=== PATIENT | male | born 1995 | race Caucasian/White ===

== ENCOUNTER 2018-10-07 16:16 | Emergency (ER) | payer BC ==
[2018-10-07 16:26] VITALS: BP 141/78; PULSE 79; RESP 18; TEMP 98.7
--- NOTE | 2018-10-07 17:30 | ED ---
ENT HPI - General Chief complaint: ENT Stated complaint: sore throat Time Seen by Provider: 10/07/18 16:27 Source: patient Mode of arrival: ambulatory Limitations: no limitations - History of Present Illness Initial comments: 23-year-old male presented for sore throat. Patient states he recently had cough congestion. He states that for the past 2 days he has had sore throat. His girlfriend also has a sore throat. Patient states that it feels more than a regular sore throat. Patient states he has taken lots of water with this pills. Denies taking pills at night. Patient is confident there is; there. Denies any eating any fish bones he states that it feels like he may have strep throat. Patient denies fevers. Denies cough. Denies abdominal pain. Remaining review of system negative - Related Data Allergies Allergy/AdvReac Type Severity Reaction Status Date / Time No Known Allergies Allergy Verified 10/07/18 16:26 Review of Systems ROS Statement: Those systems with pertinent positive or pertinent negative responses have been documented in the HPI. ROS Other: All systems not noted in ROS Statement are negative. Past Medical History Past Medical History: No Reported History History of Any Multi-Drug Resistant Organisms: None Reported Past Surgical History: No Surgical Hx Reported Past Psychological History: No Psychological Hx Reported Smoking Status: Never smoker Past Alcohol Use History: Occasional Past Drug Use History: None Reported General Exam - General Exam Comments Initial Comments: General: The patient is awake and alert, in no distress, and does not appear acutely ill. Eye: +3 mm pupils are equal, round and reactive to light, extra-ocular movements are intact. No nystagmus. There is normal conjunctiva bilaterally. No signs of icterus. No photophobia Ears, nose, mouth and throat: There are moist mucous membranes and no oral lesions. Oropharynx was erythematous there is no tonsillar enlargement exudates or lesions. Uvula midline. Tympanic membranes are not erythematous or is no effusions bulging or retraction. No tenderness to palpation of the mastoid. No anterior cervical lymphadenopathy. No tripoding, no drooling. Neck: The neck is supple, there is no tenderness or JVD. No nuchal rigidity Cardiovascular: There is a regular rate and rhythm. No murmur, rub or gallop is appreciated. Respiratory: Lungs are clear to auscultation, respirations are non-labored, breath sounds are equal. No wheezes, stridor, rales, or rhonchi. No retractions or abdominal breathing. Gastrointestinal: Soft, non-distended, non-tender abdomen without masses or organomegaly noted. There is no rebound or guarding present. Bowel sounds are unremarkable. Musculoskeletal: Normal ROM, no tenderness. Strength 5/5. Sensation intact. Radial pulses equal bilaterally 2+. Neurological: A&O x 3. CN II-XII intact, There are no obvious motor or sensory deficits. Coordination appears grossly intact. Speech appears normal, no muff ling. Skin: Skin is warm and dry and no rashes or lesions are noted. No extremity edema Psychiatric: Cooperative Limitations: no limitations Course Vital Signs 10/07/18 16:24 Temperature 98.7 F Pulse Rate 79 Respiratory 18 Rate Blood Pressure 141/78 O2 Sat by Pulse 99 Oximetry Medical Decision Making - Medical Decision Making Appearing 23-year-old male for sore throat. Sick contacts at home cough and has read painful throat as well. Patient is afebrile. No tonsillar exudates. Erythematous throat with uvula midline. Patient states his calf and he did not have a pill stuck in his throat. At this time feel patient is viral pharyngitis given strep testing negative. I recommend patient follow-up with primary care provider and discuss symptomatically treatment. Patient is provided a single dose of Decadron in the emergency department. Return parameters were discussed the patient is discharged appearing well - Lab Data Lab Results 10/07/18 Range/Units 17:05 Group A Strep Rapid Negative (Negative) Disposition Clinical Impression: Pharyngitis Disposition: HOME SELF-CARE Condition: Good Instructions (If sedation given, give patient instructions): Mononucleosis (ED), Pharyngitis (ED) Additional Instructions: Please use medication as discussed. Please follow-up with family doctor in the next 2 days. Please return to emergency room if the symptoms increase or worsen or for any other concerns, abdominal pain. Is patient prescribed a controlled substance at d/c from ED?: No Referrals: None,St[facility] Time of Disposition: 17:40
[2018-10-07] MEDS ORDERED: DEXAMETHASONE 4 MG TAB PO STA (17:40)
== END 2018-10-07 17:48 | disposition home or self-care (01) ==
LOC: EC 16:16
DX: J02.9 Acute pharyngitis, unspecified (principal)
CPT/HCPCS: 87081; 87430; 99283; J8540

== ENCOUNTER → 2020-09-08 | Outpatient (CLI) | payer BC | END | disposition home or self-care (01) | DX: R10.9 Unspecified abdominal pain (principal) ==

== ENCOUNTER 2020-10-20 10:48 | Emergency (ER) | payer BC ==
[2020-10-20 11:06] VITALS: TEMP 97.9
[2020-10-20] MEDS ORDERED: SODIUM CHLORIDE 0.9% 1,000 ML IV STA (11:50)
[2020-10-20] MEDS ORDERED: KETOROLAC 15 MG/ML 1 ML VIAL IVP STA (11:50)
--- NOTE | 2020-10-20 11:55 | ED ---
General Adult HPI - General Chief complaint: Abdominal Pain Stated complaint: right side pain Source: patient, RN notes reviewed, old records reviewed Mode of arrival: ambulatory Limitations: no limitations - History of Present Illness Initial comments: 25-year-old well-appearing white male, presents to the emergency room with complaints of 3 months of right sided abdominal pain. Patient states he seen his primary care, Dr. Sandhu, and had CAT scan done was unremarkable. He continues to have the right-sided pain seen his doctor on Friday and she stated there was white blood cells in his urine and put him on antibiotics. Patient denies any dysuria but states every time he tries to eat he has this right-sided abdominal pain and feels like there is a pressure in his back. He is scheduled for an ultrasound at the end of November but states that the pain was worsening today so he came to the emergency room. He does state that he had blood work done on Friday with his primary care doctor but does not know the results. He denies any fevers, or vomiting but does state that he had a decrease in appetite related to the pain. -: month(s) (3) Location: back, pelvis, right Radiation: non-radiation Severity scale (1-10): 7 Quality: other (Pressure and bloating) Consistency: constant Improves with: none Worsens with: eating Treatments Prior to Arrival: other (Antibiotics) - Related Data Home Medications Medication Instructions Recorded Confirmed Ciprofloxacin HCl 500 mg PO BID 10/20/20 10/20/20 Allergies Allergy/AdvReac Type Severity Reaction Status Date / Time No Known Allergies Allergy Verified 10/20/20 12:16 Review of Systems ROS Statement: Those systems with pertinent positive or pertinent negative responses have been documented in the HPI. ROS Other: All systems not noted in ROS Statement are negative. Past Medical History Past Medical History: No Reported History History of Any Multi-Drug Resistant Organisms: None Reported Past Surgical History: No Surgical Hx Reported Past Psychological History: No Psychological Hx Reported Smoking Status: Never smoker Past Alcohol Use History: Occasional Past Drug Use History: None Reported General Exam Limitations: no limitations General appearance: alert, in no apparent distress Head exam: Present: atraumatic, normocephalic, normal inspection Eye exam: Present: normal appearance, PERRL, EOMI. Absent: scleral icterus, conjunctival injection, periorbital swelling ENT exam: Present: normal exam, normal oropharynx, mucous membranes moist Neck exam: Present: full ROM. Absent: meningismus Respiratory exam: Present: normal lung sounds bilaterally. Absent: respiratory distress, wheezes, rales, rhonchi, stridor, decreased breath sounds, prolonged expiratory Cardiovascular Exam: Present: normal rhythm, bradycardia, normal heart sounds. Absent: systolic murmur, diastolic murmur, rubs, gallop, clicks GI/Abdominal exam: Present: soft, tenderness (Suprapubic), normal bowel sounds. Absent: distended, guarding, rebound, rigid Back exam: Present: normal inspection, full ROM. Absent: tenderness, CVA tenderness (R), CVA tenderness (L), muscle spasm, paraspinal tenderness, sarah tebral tenderness Neurological exam: Present: alert, oriented X3, CN II-XII intact Psychiatric exam: Present: normal affect, normal mood Skin exam: Present: warm, dry, intact, normal color. Absent: rash Course Vital Signs 10/20/20 10/20/20 11:02 12:58 Temperature 97.9 F Pulse Rate 58 L 80 Respiratory 18 20 Rate Blood Pressure 147/91 132/64 O2 Sat by Pulse 98 99 Oximetry Medical Decision Making - Medical Decision Making UA shows small leukocyte esterase, negative for nitrites, there are 14 wbc's and patient was placed on antibiotics by his primary care doctor on Friday which he is continuing to take. Ultrasound of the renals and bladder show no hydronephrosis known nephrolithiasis and no masses. The bladder is nondistended. He had a CAT scan done August was negative for any gallston es or calcifications within the kidney. Case discussed with Dr. Silva. Patient will be directed to follow up with his primary care doctor next week. - Lab Data Result diagrams: 10/20/20 12:05 10/20/20 12:05 Lab Results 10/20/20 10/20/20 10/20/20 Range/Units 12:05 12:05 12:05 WBC 7.0 (3.8-10.6) k/uL RBC 5.46 (4.30-5.90) m/uL Hgb 16.2 (13.0-17.5) gm/dL Hct 46.8 (39.0-53.0) % MCV 85.8 (80.0-100.0) fL MCH 29.6 (25.0-35.0) pg MCHC 34.5 (31.0-37.0) g/dL RDW 12.9 (11.5-15.5) % Plt Count 298 (150-450) k/uL MPV 7.6 Neutrophils % 58 % Lymphocytes % 29 % Monocytes % 5 % Eosinophils % 4 % Basophils % 1 % Neutrophils # 4.0 (1.3-7.7) k/uL Lymphocytes # 2.1 (1.0-4.8) k/uL Monocytes # 0.3 (0-1.0) k/uL Eosinophils # 0.3 (0-0.7) k/uL Basophils # 0.1 (0-0.2) k/uL Sodium 138 (137-145) mmol/L Potassium 4.0 (3.5-5.1) mmol/L Chloride 105 (98-107) mmol/L Carbon Dioxide 24 (22-30) mmol/L Anion Gap 9 mmol/L BUN 13 (9-20) mg/dL Creatinine 0.76 (0.66-1.25) mg/dL Est GFR (CKD-EPI)AfAm >90 (>60 ml/min/1.73 sqM) Est GFR (CKD-EPI)NonAf >90 (>60 ml/min/1.73 sqM) Glucose 100 H (74-99) mg/dL Calcium 9.7 (8.4-10.2) mg/dL Total Bilirubin 0.6 (0.2-1.3) mg/dL AST 31 (17-59) U/L ALT 47 (4-49) U/L Alkaline Phosphatase 67 (38-126) U/L Total Protein 7.3 (6.3-8.2) g/dL Albumin 4.8 (3.5-5.0) g/dL Amylase 65 (30-110) U/L Lipase 41 (23-300) U/L Urine Color Yellow Urine Appearance Clear (Clear) Urine pH 5.5 (5.0-8.0) Ur Specific [place] 1.027 (1.001-1.035) Urine Protein Trace H (Negative) Urine Glucose (UA) Negative (Negative) Urine Ketones Negative (Negative) Urine Blood Negative (Negative) Urine Nitrite Negative (Negative) Urine Bilirubin Negative (Negative) Urine Urobilinogen <2.0 (<2.0) mg/dL Ur Leukocyte Esterase Small H (Negative) Urine RBC 1 (0-5) /hpf Urine WBC 14 H (0-5) /hpf Ur Squamous Epith Cells <1 (0-4) /hpf Urine Mucus Moderate H (None) /hpf Disposition Clinical Impression: UTI (urinary tract infection) Disposition: HOME SELF-CARE Condition: Good Instructions (If sedation given, give patient instructions): Urinary Tract Infection in Men (ED) Additional Instructions: Increase your fluid intake, take antibiotics as prescribed by her primary care doctor. Follow-up with your doctor next week. Return to the emergency room with any worsening or new symptoms. Is patient prescribed a controlled substance at d/c from ED?: No Referrals: Hernando Sandhu DO [Primary Care Provider] - 1-2 days Time of Disposition: 12:45
[2020-10-20 12:30] LABS: Appearance,Urine Clear (Clear); Bilirubin,Urine Negative (Negative); Blood,Urine Negative (Negative); Color,Urine Yellow; Glucose,Urine (UA) Negative (Negative); Ketones,Urine Negative (Negative); Leukocyte Esterase,Urine Small (Negative); Mucus,Urine Moderate /hpf; Nitrite,Urine Negative (Negative); PH, Urine 5.5 (5.0-8.0); Protein,Urine Trace (Negative); RBC,Urine 1 /hpf (0-5); Specific Gravity,Urine 1.027 (1.001-1.035); Squamous Epithelial Cell,Urine <1 /hpf (0-4); Urobilinogen,Urine <2.0 mg/dL (<2.0); WBC,Urine 14 /hpf (0-5)
[2020-10-20 12:33] LABS: Basophils # (A) 0.1 k/uL (0-0.2); Basophils % (A) 1 %; Eosinophils # (A) 0.3 k/uL (0-0.7); Eosinophils % (A) 4 %; HCT 46.8 % (39.0-53.0); HGB 16.2 gm/dL (13.0-17.5); Lymphocytes # (A) 2.1 k/uL (1.0-4.8); Lymphocytes % (A) 29 %; MCH 29.6 pg (25.0-35.0); MCHC 34.5 g/dL (31.0-37.0); MCV 85.8 fL (80.0-100.0); Mean Platelet Volume 7.6; Monocytes # (A) 0.3 k/uL (0-1.0); Monocytes % (A) 5 %; Neutrophils % (A) 58 %; Platelet Count 298 k/uL (150-450); RBC 5.46 m/uL (4.30-5.90); RDW 12.9 % (11.5-15.5)
[2020-10-20 12:36] LABS: ALT 47 U/L (4-49); AST 31 U/L (17-59); African American GFR (CKD) >90 (>60 ml/min/1.73 sqM); Albumin 4.8 g/dL (3.5-5.0); Alkaline Phosphatase 67 U/L (38-126); Amylase 65 U/L (30-110); Anion Gap 9 mmol/L; Blood Urea Nitrogen 13 mg/dL (9-20); Calcium 9.7 mg/dL (8.4-10.2); Carbon Dioxide 24 mmol/L (22-30); Chloride 105 mmol/L (98-107); Glucose 100 mg/dL (74-99); Lipase 41 U/L (23-300); Non-African American GFR(CKD) >90 (>60 ml/min/1.73 sqM); Sodium 138 mmol/L (137-145); Total Bilirubin 0.6 mg/dL (0.2-1.3); Total Protein 7.3 g/dL (6.3-8.2)
--- NOTE | 2020-10-20 12:38 | US ---
EXAMINATION TYPE: US renals and bladder DATE OF EXAM: 10/20/2020 COMPARISON: CT September 08 2020 CLINICAL HISTORY: uti, back pain, hx of kidney stones. Right flank pain EXAM MEASUREMENTS: Right Kidney: 11.7 x 5.6 x 5.6 cm Left Kidney: 11.1 x 6.5 x 5.2 cm Right Kidney: No hydronephrosis or masses seen Left Kidney: No hydronephrosis or masses seen Bladder: not fully distended Bilateral Jets seen: no There is no evidence for hydronephrosis at this point in time. No nephrolithiasis is seen. No reinaldo s are identified. The urinary bladder is poorly distended. Bilateral ureteral jets are not seen. IMPRESSION: No new hydronephrosis. No significant change from recent CT.
[2020-10-20 13:00] VITALS: BP 132/64; PULSE 80; RESP 20
== END 2020-10-20 13:00 | disposition home or self-care (01) ==
LOC: EC 10:48
DX: N39.0 Urinary tract infection, site not specified (principal)
CPT/HCPCS: 36415; 80053; 82150; 83690; 85025; 81001; 87086; 76770; 96374; 96361; 99284; J1885

== ENCOUNTER 2023-10-12 07:14 | Emergency (ER) | payer BC ==
--- NOTE | 2023-11-09 11:17 | US ---
Site ID [facility] Patient Deshaun Rowell ID [id number] EXAMINATION TYPE: US abdomen DATE OF EXAM: 10/12/2023 11:54 AM SITE: [facility] Jorgito Sung CLINICAL INDICATION: RUQ Pain - Ongoing x 2 years. COMPARISON: THIS EXAM WAS READ DURING PACS DOWNTIME, NO PRIORS AVAILABLE. TECHNIQUE: Multiple sonographic images of the abdomen are obtained. FINDINGS: Liver = 14.8 cm CBD: 0.3 cm GB Wall = 0.2 cm Rt Kidney = 11.0 x 5.0 x 5.6 cm Pancreas: wnl Liver: wnl Gallbladder: wnl Evidence for sonographic Diaz's sign: No CBD: wnl Spleen: wnl Right Kidney: wnl Left Kidney: wnl Upper IVC: wnl Abd Aorta: wnl The liver is homogenous. The intrahepatic portion of the IVC and proximal abdominal aorta are within normal limits. There is no evidence of cholelithiasis. Common bile duct is unremarkable. The visualiz ed portions of the pancreas are homogenous. The spleen is unremarkable. Kidneys are symmetric and albaro e of hydronephrosis. No renal lesions are seen. IMPRESSION: No evidence for acute process.
== END 2023-10-12 10:30 | disposition home or self-care (01) ==
LOC: EC 07:14
DX: R10.11 Right upper quadrant pain (principal)
CPT/HCPCS: 76705; 99284

== ENCOUNTER → 2024-01-20 | Outpatient (CLI) | payer BC ==
--- NOTE | 2024-01-20 09:21 | NM ---
EXAMINATION TYPE: NM hepatobiliary w EF DATE OF EXAM: 01/20/2024 COMPARISON: NONE CLINICAL INDICATION: Male, 28 years old with history of R10.9 Abd Pain; TECHNIQUE: After the intravenous administration of 5.1 mCi Tc 99m Mebrofenin hepatobiliary scintigrap hy is performed. Immediate images post injection. FINDINGS: There is satisfactory initial accumulation of tracer by the liver. The gallbladder is visualized wit hin 12 minutes. The small bowel activity is noted within 18 minutes. At one hour 8 ounces of oral e nsure plus is given to mimic CCK and gallbladder ejection fraction is calculated at 64 %, in the norm al range. Therefore there is no scintigraphic evidence of cystic or common bile duct obstruction to suggest acute cholecystitis or gallbladder dyskinesia. IMPRESSION: Exam is within normal limits. [facility] Lisa Sung, , 01/20/2024 9:19 AM
== END | disposition home or self-care (01) ==
LOC: RADNMMAIN 06:41
PROVIDERS: ATTEND Family Medicine
DX: R10.9 Unspecified abdominal pain (principal)
CPT/HCPCS: 78226; A9537